=== PATIENT | female | born 1990 | race Caucasian/White ===

== ENCOUNTER 2017-10-26 18:06 | Emergency (ER) | payer MEDICAID ==
[~2017-10-26] VITALS: Ht 167.6 cm; Wt 74.8 kg
[~2017-10-26 18:06] MED LIST: ALBU90I INH; ALBU90OI INH; ALBU90OI61 INH; BUPR100 PO; FLUO10 PO; FLUSAL1005 INH; MELA3 PO; ONDA4ODT MM; PHENA200 PO; PRED10 PO; SULTRIDS PO
[2017-10-26] MEDS ORDERED: Augmentin 875-1 EACH PO (19:24)
== END 2017-10-26 19:43 | disposition home or self-care (01) ==
LOC: ER 18:06
DX: S01.85XA Open bite of other part of head, initial encounter (principal); S01.25XA Open bite of nose, initial encounter; W54.0XXA Bitten by dog, initial encounter; Z88.8 Allergy status to other drugs, medicaments and biological substances; Z79.899 Other long term (current) drug therapy; F32.9 Major depressive disorder, single episode, unspecified; F41.9 Anxiety disorder, unspecified; J45.909 Unspecified asthma, uncomplicated
CPT/HCPCS: 12013; 90471; 90714; 99283

== ENCOUNTER 2017-11-01 09:53 | Emergency (ER) | payer SELFPAY ==
[~2017-11-01] VITALS: Ht 167.6 cm; Wt 74.8 kg
[~2017-11-01 09:53] MED LIST changes: +Augmentin 875-1 EACH PO
== END 2017-11-01 11:13 | disposition home or self-care (01) ==
LOC: ER 09:53
DX: S01.85XD Open bite of other part of head, subsequent encounter (principal); W54.0XXD Bitten by dog, subsequent encounter